=== PATIENT | male | born 1975 | race American Indian/Alaskan Native ===

== ENCOUNTER 2019-06-25 12:16 | Emergency (ER) | payer SELFPAY ==
--- NOTE | 2019-06-25 13:11 | Event Note ---
ED Screening Note Date of service: 06/25/19 Time: 13:07 ED Screening Note: 43 y/o male comes in for 8 days of chest pain with tenderness. Patient reports that he lift heavy objects at work. Denies any n/v or radiation. No SOB no fever or chills. Exam: Chest CTA chest wall tenderness Heart RRR ext: no swelling FROM This initial assessment/diagnostic orders/clinical plan/treatment(s) is/are subject to change based on patients health status, clinical progression and re- assessment by fellow clinical providers in the ED. Further treatment and workup at subsequent clinical providers discretion. Patient/guardian urged not to elope from the ED as their condition may be serious if not clinically assessed and managed. Initial orders include:
[2019-06-25] MEDS ORDERED: IBUPROFEN 800 MG TAB PO ONE (14:11)
[2019-06-25] MEDS ORDERED: HYDROcodone/ACETAMINOPHEN 5-325 MG TAB PO ONE (14:11)
[2019-06-25 14:12] LABS: Eosinophils % (Auto) 1.7 % (0.0-4.3); Hematocrit 44.2 % (35.5-45.6); Hemoglobin 14.6 gm/dl (11.8-15.2); Lymphocytes % (Auto) 33.1 % (13.4-35.0); Mean Corpuscular HGB Conc 33 % (32-34); Mean Corpuscular Volume 85 fl (84-94); Monocytes % (Auto) 9.1 % (0.0-7.3); Platelet Count 178 K/mm3 (140-440); Red Blood Count 5.23 M/mm3 (3.65-5.03); Red Cell Distribution Width 13.2 % (13.2-15.2)
[2019-06-25 14:13] LABS: Basophils % (Auto) 0.9 % (0.0-1.8); Eosinophils # (Auto) 0.1 K/mm3 (0.0-0.4); Monocytes # (Auto) 0.3 K/mm3 (0.0-0.8)
--- NOTE | 2019-06-25 14:14 | Emergency Department Report ---
HPI - General Chief Complaint: Chest Pain Time Seen by Provider: 06/25/19 13:06 - [facility] HPI: Room 37 The patient is a 43-year-old male presenting with a chief complaint of chest pain. Patient states for one week she's had pain in the anterior chest exace rbated by movement and heavy lifting. Patient denies any preceding trauma but states while at work he lifts heavy boxes frequently. Patient admits to slight shortness of breath but denies nausea/vomiting or diaphoresis. Patient denies any recent flights or long car trips. Patient admits to occasional pleurisy. Patient denies history of cough. Patient currently gives his pain a score of 8/10 Location: [See above] Duration: [See above] Quality: [See above] Severity: [See above] Timing: [See above] Context: [See above] Modifying factors: [See above] Associated signs and symptoms: [see above] ED Past Medical Hx - Past Medical History Previous Medical History?: No - Surgical History Past Surgical History?: No - Family History Family history: no significant - Social History Smoking Status: Never Smoker Substance Use Type: Alcohol (occasional), Marijuana - Medications Home Medications: Home Medications Medication Instructions Recorded Confirmed Last Taken Type Cyclobenzaprine [Flexeril] 10 mg PO TID PRN #10 tablet 06/25/19 Unknown Rx HYDROcodone/APAP 5-325 [[place] 1 - 2 each PO Q6HR PRN #10 tablet 06/25/19 Unknown Rx 5/325] Ibuprofen [Motrin 800 MG tab] 800 mg PO Q8HR PRN #20 tablet 06/25/19 Unknown Rx ED Review of Systems ROS: Stated complaint: CHEST PAIN Other details as noted in HPI Constitutional: denies: diaphoresis Eyes: denies: eye pain ENT: denies: throat pain Respiratory: shortness of breath. denies: cough Cardiovascular: chest pain Endocrine: no symptoms reported Gastrointestinal: denies: nausea Genitourinary: denies: dysuria Musculoskeletal: myalgia Neurological: denies: headache Physical Exam - Physical Exam Vital Signs: Vital Signs 06/25/19 13:00 Temperature 98.2 F Pulse Rate 58 L Respiratory 18 Rate Blood Pressure 120/81 O2 Sat by Pulse 100 Oximetry Physical Exam: GENERAL: The patient is well-developed well-nourished male sitting in chair not appearing to be in acute distress. [] HEENT: Normocephalic. Atraumatic. Extraocular motions are intact. Patient has moist mucous membranes. NECK: Supple. Trachea midline CHEST/LUNGS: Clear to auscultation. There is no respiratory distress noted. HEART/CARDIOVASCULAR: Regular. There is no tachycardia. There is no gallop rub or murmur. ABDOMEN: Abdomen is soft, nontender. Patient has normal bowel sounds. There is no abdominal distention. SKIN: There is no rash. There is no edema. There is no diaphoresis. NEURO: The patient is awake, alert, and oriented. The patient is cooperative. The patient has no focal neurologic deficits. The patient has normal speech MUSCULOSKELETAL: There is no evidence of acute injury. ED Course Vital Signs 06/25/19 13:00 Temperature 98.2 F Pulse Rate 58 L Respiratory 18 Rate Blood Pressure 120/81 O2 Sat by Pulse 100 Oximetry ED Medical Decision Making - Lab Data Result diagrams: 06/25/19 13:41 06/25/19 13:41 Laboratory Tests 06/25/19 06/25/19 06/25/19 13:41 13:41 14:03 WBC 3.2 L RBC 5.23 H Hgb 14.6 Hct 44.2 MCV 85 MCH 28 MCHC 33 RDW 13.2 Plt Count 178 Lymph % (Auto) 33.1 [place] % (Auto) 9.1 H Eos % (Auto) 1.7 Baso % (Auto) 0.9 Lymph # 1.0 L [place] # 0.3 Eos # 0.1 Baso # 0.0 Seg Neutrophils % 55.2 Seg Neutrophils # 1.7 L D-Dimer 165.32 Sodium 142 Potassium 4.2 Chloride 106.1 Carbon Dioxide 25 Anion Gap 15 BUN 14 Creatinine 1.2 Estimated GFR > 60 BUN/Creatinine Ratio 12 Glucose 83 Calcium 9.2 Total Bilirubin 0.20 AST 23 ALT 17 Alkaline Phosphatase 53 Troponin T < 0.010 Total Protein 7.5 Albumin 4.3 Albumin/Globulin Ratio 1.3 - EKG Data -: EKG Interpreted by Me EKG shows normal: sinus rhythm Rate: normal - EKG Data When compared to previous EKG there are: previous EKG unavailable Interpretation: nonspecific ST-T wave anahi - Radiology Data Radiology results: report reviewed (chest x-ray), image reviewed (chest x-ray) interpreted by me: Chest x-ray-no focal infiltrates, no pneumothorax [facility] [address] [place] [address] XRay Report Signed Patient: VALDEMAR KIMBALL MR#: [id number] : 1975 Acct:[id number] Age/Sex: 43 / M ADM Date: 06/25/19 Loc: ED Attending Dr: Ordering Physician: WALT FORD MD Date of Service: 06/25/19 Procedure(s): XR chest routine 2V Accession Number(s): [id number] cc: WALT FORD MD Fluoro Time In Minutes: CHEST 2 VIEWS INDICATION / CLINICAL INFORMATION: chest pain. COMPARISON: None available. FINDINGS: SUPPORT DEVICES: None. HEART / MEDIASTINUM: No significant abnormality. LUNGS / PLEURA: No significant pulmonary or pleural abnormality. No pneumothorax. ADDITIONAL FINDINGS: No significant additional findings. IMPRESSION: 1. No acute findings. Signer Name: Owen Perea MD Signed: 06/25/2019 2:52 PM Workstation Name: [id number] Transcribed By: CHIDI Dictated By: Owen Perea MD Electronically Authenticated By: Owen Perea MD Signed Date/Time: 06/25/191451 DD/ 51 TD/TT: - Differential Diagnosis muscle strain, GERD, pericarditis, ACS, PE Critical care attestation.: If time is entered above; I have spent that time in minutes in the direct care of this critically ill patient, excluding procedure time. ED Disposition Clinical Impression: Chest wall pain Disposition: DC- TO HOME OR SELFCARE Is pt being admited?: No Does the pt Need Aspirin: No Condition: Stable Instructions: Chest Pain (ED) Additional Instructions: Return to the emergency department should you develop worsening symptoms, inability to tolerate food or liquids, high fever or any other concerns Prescriptions: Cyclobenzaprine [Flexeril] 10 mg PO TID PRN #10 tablet PRN Reason: Muscle Spasm Ibuprofen [Motrin 800 MG tab] 800 mg PO Q8HR PRN #20 tablet PRN Reason: Pain, Moderate (4-6) HYDROcodone/APAP 5-325 [[place] 5/325] 1 - 2 each PO Q6HR PRN #10 tablet PRN Reason: Pain Referrals: SAIGE BROWN MD [Staff Physician] - 3-5 Days Time of Disposition: 15:03
[2019-06-25 14:38] LABS: Alanine Aminotransferase 17 units/L (7-56); Albumin 4.3 g/dL (3.9-5); BUN/Creatinine Ratio 12; Blood Urea Nitrogen 14 mg/dL (9-20); Calcium 9.2 mg/dL (8.4-10.2); Hemolysis Index 13
--- NOTE | 2019-06-25 14:57 | XRay Report ---
CHEST 2 VIEWS INDICATION / CLINICAL INFORMATION: chest pain. COMPARISON: None available. FINDINGS: SUPPORT DEVICES: None. HEART / MEDIASTINUM: No significant abnormality. LUNGS / PLEURA: No significant pulmonary or pleural abnormality. No pneumothorax. ADDITIONAL FINDINGS: No significant additional findings. IMPRESSION: 1. No acute findings. Signer Name: Owen Perea MD Signed: 06/25/2019 2:52 PM Workstation Name: [id number]
[2019-06-25 15:57] VITALS: BP 118/78
== END 2019-06-25 16:00 | disposition home or self-care (01) ==
LOC: ED 12:16
DX: R07.89 Other chest pain (principal); F10.10 Alcohol abuse, uncomplicated; F12.10 Cannabis abuse, uncomplicated
CPT/HCPCS: 36415; 71046; 80053; 84484; 85025; 85379; 93005; 93010

== ENCOUNTER 2020-06-15 07:10 | Emergency (ER) | payer OTHER ==
[2020-06-15] MEDS ORDERED: ASPIRIN 325 MG TAB PO ONE (07:33)
[2020-06-15 08:09] LABS: Hematocrit 39.9 % (35.5-45.6); Hemoglobin 13.6 gm/dl (11.8-15.2); Mean Corpuscular HGB Conc 34 % (32-34); Mean Corpuscular Volume 83 fl (84-94); Platelet Count 200 K/mm3 (140-440); Red Blood Count 4.81 M/mm3 (3.65-5.03); Red Cell Distribution Width 13.6 % (13.2-15.2)
--- NOTE | 2020-06-15 08:17 | Emergency Department Report ---
ED Chest Pain HPI - General Chief Complaint: Chest Pain Stated Complaint: CHEST PAIN PUI?: No Time Seen by Provider: 06/15/20 08:06 Source: patient Mode of arrival: Ambulatory Limitations: No Limitations - History of Present Illness Initial Comments: CC: chest pain HPI: This is a 44-year-old male with history of tobacco dependence no other significant past medical history who presents with chest pain for the past 3 days. Gradual onset. Pain is central. Sharp. Worse with inspiration. Worse with cough. 9 out of 10 in severity. No radiation. No trauma. He was seen at outside hospital on previous occasion for chest pain. He does not recall his diagnosis. According to electronic medical record he was seen at this ER in June for similar pleuritic chest pain. Patient does not have any significant past medical history. No family history of heart disease. No history of surgeries. Patient does smoke tobacco. 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 He lives alone. No recent travel. MD Complaint: chest pain -: Gradual, days(s) (3) Onset: during rest Pain Location: substernal Pain Radiation: none Severity: severe Severity scale (0 -10): 9 Quality: sharp Consistency: constant Improves With: nothing Worsens With: inspiration, other (cough) Other Symptoms: cough (Productive cough) Treatments Prior to Arrival: none - Related Data Previous Rx's Medication Instructions Recorded Last Taken Type Cyclobenzaprine [Flexeril] 10 mg PO TID PRN #10 tablet 06/25/19 Unknown Rx HYDROcodone/APAP 5-325 [[place] 1 - 2 each PO Q6HR PRN #10 tablet 06/25/19 Unknown Rx 5/325] Ibuprofen [Motrin 800 MG tab] 800 mg PO Q8HR PRN #20 tablet 06/25/19 Unknown Rx Doxycycline Hyclate [Doxycycline 100 mg PO Q12HR 7 Days #14 tab 06/15/20 Unknown Rx Hyclate TAB] Ibuprofen [Motrin 400 MG tab] 400 mg PO TID 7 Days #21 tablet 06/15/20 Unknown Rx Allergies Allergy/AdvReac Type Severity Reaction Status Date / Time No Known Allergies Allergy Verified 06/15/20 07:26 Heart Score - HEART Score History: Slightly suspicious EKG: Significant ST-depression Age: < 45 Risk factors: 1-2 risk factors Troponin: < normal limit HEART Score: 3 ED Review of Systems ROS: Stated complaint: CHEST PAIN Other details as noted in HPI Comment: All other systems reviewed and negative Constitutional: denies: fever, malaise Respiratory: cough. denies: shortness of breath Cardiovascular: chest pain Gastrointestinal: denies: abdominal pain, nausea, vomiting ED Past Medical Hx - Past Medical History Previous Medical History?: No - Surgical History Past Surgical History?: No - Family History Family history: no significant - Social History Smoking Status: Current Every Day Smoker Substance Use Type: Alcohol (occasional), Marijuana - Medications Home Medications: Home Medications Medication Instructions Recorded Confirmed Last Taken Type Cyclobenzaprine [Flexeril] 10 mg PO TID PRN #10 tablet 06/25/19 Unknown Rx HYDROcodone/APAP 5-325 [[place] 1 - 2 each PO Q6HR PRN #10 tablet 06/25/19 Unknown Rx 5/325] Ibuprofen [Motrin 800 MG tab] 800 mg PO Q8HR PRN #20 tablet 06/25/19 Unknown Rx Doxycycline Hyclate [Doxycycline 100 mg PO Q12HR 7 Days #14 tab 06/15/20 Unknown Rx Hyclate TAB] Ibuprofen [Motrin 400 MG tab] 400 mg PO TID 7 Days #21 tablet 06/15/20 Unknown Rx ED Physical Exam - General Limitations: No Limitations General appearance: alert, in no apparent distress, other (No acute distress, athletic muscular build) - Head Head exam: Present: atraumatic, normocephalic - Eye Eye exam: Present: normal appearance - ENT ENT exam: Present: mucous membranes moist - Neck Neck exam: Present: normal inspection, full ROM - Respiratory Respiratory exam: Present: normal lung sounds bilaterally. Absent: respiratory distress, wheezes, rales, rhonchi - Cardiovascular Cardiovascular Exam: Present: regular rate, normal rhythm, normal heart sounds. Absent: systolic murmur, diastolic murmur, rubs, gallop - GI/Abdominal GI/Abdominal exam: Present: soft, normal bowel sounds. Absent: distended, tenderness, guarding, rebound - Rectal Rectal exam: Present: deferred - Extremities Exam Extremities exam: Present: normal inspection - Neurological Exam Neurological exam: Present: alert, oriented X3 - Psychiatric Psychiatric exam: Present: normal affect, normal mood - Skin Skin exam: Present: warm, dry, intact, normal color. Absent: rash ED Course Vital Signs 06/15/20 06/15/20 06/15/20 07:30 08:18 08:30 Temperature 99.4 F Pulse Rate 77 61 Respiratory 20 20 13 Rate Blood Pressure 117/78 109/81 O2 Sat by Pulse 97 100 98 Oximetry 06/15/20 06/15/20 06/15/20 09:00 09:31 10:00 Temperature Pulse Rate 55 L 59 L 71 Respiratory 16 13 13 Rate Blood Pressure 107/72 107/72 100/65 O2 Sat by Pulse 99 100 99 Oximetry 06/15/20 10:31 Temperature Pulse Rate 63 Respiratory 19 Rate Blood Pressure 100/65 O2 Sat by Pulse 100 Oximetry ED Medical Decision Making - Lab Data Result diagrams: 06/15/20 07:59 06/15/20 07:59 - EKG Data -: EKG Interpreted by Me - EKG Data When compared to previous EKG there are: other (ST elevation repolarization abnormality more prominent in anterior leads when compared to EKG obtained June 2019) Interpretation: LVH 06/15/20 08:15 EKG obtained 0737 EKG interpreted by me Normal sinus rhythm 60 bpm normal axis normal intervals ST elevation V1 V2 appears to the morphology of repolarization abnormality, there is [address] depression in the inferior leads 06/15/20 09:39 Second EKG obtained 0918 EKG interpreted by ia Normal sinus rhythm rate 65 bpm normal axis normal intervals LVH with repolarization abnormality. No ST-T wave changes from previous EKG - Radiology Data Radiology results: report reviewed Chest radiograph: No acute findings CT angio chest: Revealed no evidence of pulmonary embolism no acute findings - Medical Decision Making Is a 44-year-old male who presents with pleuritic chest pain for the past 3 days. Atypical for ACS. Heart score 3. EKG is abnormal. Yet mostly unchanged from 2019, ST abnormality in the inferior leads present in previous EKG. Differential diagnosis includes pericarditis PE pneumothorax pneumonia bronchitis pleurisy. Will prescribe antibiotics for possible bronchitis which is indicated and smoker. Will prescribe ibuprofen for possible viral pleurisy versus viral pericarditis Referred to media consultant. I have faxed referral request to for [facility]. Also referred patient to outpatient medicine physician. Critical care attestation.: If time is entered above; I have spent that time in minutes in the direct care of this critically ill patient, excluding procedure time. ED Disposition Clinical Impression: Acute bronchitis, Pleuritic chest pain Disposition: - TO HOME OR SELFCARE Is pt being admited?: No Does the pt Need Aspirin: No Condition: Stable Instructions: Acute Bronchitis (ED), Chest Pain (ED), Nonspecific Chest Pain, Adult, [id number] Prescriptions: Doxycycline Hyclate [Doxycycline Hyclate TAB] 100 mg PO Q12HR 7 Days #14 tab Ibuprofen [Motrin 400 MG tab] 400 mg PO TID 7 Days #21 tablet Referrals: RUBEN ALEMAN MD [Staff Physician] - 3-5 Days KRISTIE LARRY MD [Staff Physician] - 3-5 Days
--- NOTE | 2020-06-15 08:19 | XRay Report ---
CHEST 1 VIEW 06/15/2020 7:12 AM INDICATION / CLINICAL INFORMATION: Chest pain. COMPARISON: 06/25/2019 FINDINGS: SUPPORT DEVICES: None. HEART / MEDIASTINUM: No significant abnormality. LUNGS / PLEURA: No significant pulmonary or pleural abnormality. No pneumothorax. ADDITIONAL FINDINGS: No significant additional findings. IMPRESSION: 1. No acute findings. Signer Name: Owen Perea MD Signed: 06/15/2020 8:14 AM Workstation Name: [id number]
[2020-06-15 08:30] LABS: BUN/Creatinine Ratio 12; Blood Urea Nitrogen 15 mg/dL (9-20); Calcium 9.3 mg/dL (8.4-10.2); Hemolysis Index 3
[2020-06-15 09:47] LABS: Total Cells Counted 100
[2020-06-15 09:48] LABS: Giant Platelets Few; RBC Morphology Normal; Tear Drop Cells Few
[2020-06-15 09:49] LABS: Platelet Estimate Consistent w Auto
--- NOTE | 2020-06-15 11:50 | Cat Scan Report ---
CTA CHEST WITH CONTRAST INDICATION / CLINICAL INFORMATION: Pleuritic chest pain elevated D-dimer. TECHNIQUE: Axial CT images were obtained through the chest after injection of IV contrast. 3 plane MIP and/or 3D reconstructions were produced. All CT scans at this location are performed using CT dose reduction f or ALARA by means of automated exposure control. COMPARISON: No prior CT of the chest. Prior chest radiograph dated 06/15/2020. FINDINGS: PULMONARY ARTERIES: No pulmonary emboli. THORACIC AORTA: No significant abnormality. HEART: No significant abnormality. No right heart strain. CORONARY ARTERIES: No significant calcification. MEDIASTINUM / ADALBERTO: No significant abnormality. PLEURA: No pleural effusion. No pneumothorax. LUNGS: No acute air space or interstitial disease. ADDITIONAL FINDINGS: None. UPPER ABDOMEN: No acute findings. SKELETAL STRUCTURES: No significant osseous abnormality. IMPRESSION: 1. No CT evidence for pulmonary embolism or right heart strain. 2. No acute findings. Signer Name: Johnnie Aguiar MD Signed: 06/15/2020 11:46 AM Workstation Name: [id number]
[2020-06-15 13:39] VITALS: BP 93/60
== END 2020-06-15 13:25 | disposition home or self-care (01) ==
LOC: ED 07:10
DX: J20.9 Acute bronchitis, unspecified (principal); R07.89 Other chest pain; F17.200 Nicotine dependence, unspecified, uncomplicated; F12.10 Cannabis abuse, uncomplicated; Z79.1 Long term (current) use of non-steroidal anti-inflammatories (NSAID); Z79.899 Other long term (current) drug therapy
CPT/HCPCS: 36415; 71045; 71275; 80048; 84484; 85007; 85025; 85379; 93005; 99284; Q9967